=== PATIENT | female | born 1945 | race Caucasian/White ===

== ENCOUNTER 2017-12-06 17:16 | Observation (INO) | payer MEDICAID ==
[2017-12-06 17:16] VITALS: BMI 34.3
--- NOTE | 2017-12-06 17:57 | C.PDOC ---
History Of Present Illness <Pina Gomez - Last Filed: 12/06/17 19:06> <Celena Christensen - Last Filed: 12/06/17 21:35> Patient c/o CP and generalized weakness started 30 min prior to arrival. Patient has h/o DVT. (Pina Gomez) <Pina Gomez - Last Filed: 12/06/17 19:06> <Celena Christensen - Last Filed: 12/06/17 21:35> Time Seen by Provider: 12/06/17 17:51 Chief Complaint (Nursing): Chest Pain Past Medical History Reviewed: Historical Data, Nursing Documentation, Vital Signs - Medical History PMH: Deep Vein Thrombosis, HTN, Hypercholesterolemia Family History: States: Unknown Family Hx - Social History Hx Alcohol Use: No Hx Substance Use: No - Immunization History Hx Tetanus Toxoid Vaccination: Yes Hx Influenza Vaccination: Yes Hx Pneumococcal Vaccination: Yes <Pina Gomez - Last Filed: 12/06/17 19:06> Vital Signs: Last Vital Signs Temp 98.6 F 12/06/17 20:38 Pulse 73 12/06/17 20:38 Resp 18 12/06/17 20:38 BP 116/80 12/06/17 20:38 Pulse Ox 100 12/06/17 20:38 - [employer] Procedures INJECT/INFUSE NEC (09/01/13) Review Of Systems Except As Marked, All Systems Reviewed And Found Negative. <Pina Gomez - Last Filed: 12/06/17 19:06> Physical Exam - Physical Exam Appears: Non-toxic, No Acute Distress Skin: Normal Color, Warm, Dry Head: Atraumatic, Normacephalic Eye(s): bilateral: Normal Inspection Nose: Normal Throat: Normal Neck: Normal ROM, Supple Chest: Symmetrical, No Deformity Cardiovascular: Rhythm Regular Respiratory: Normal Breath Sounds Gastrointestinal/Abdominal: Normal Exam, Soft, No Tenderness Back: No CVA Tenderness, No Vertebral Tenderness Extremity: Normal ROM, No Tenderness, No Calf Tenderness, No Swelling Neurological/Psych: Oriented x3, Normal Speech, Normal Cognition <Pina Gomez - Last Filed: 12/06/17 19:06> ED Course And Treatment - Laboratory Results Result Diagrams: 12/06/17 18:13 12/06/17 18:13 ECG: Interpreted By Me ECG Rhythm: Sinus Rhythm ECG Interpretation: No Acute Changes Rate From EC O2 Sat by Pulse Oximetry: 100 <Pina Gomez - Last Filed: 12/06/17 19:06> - Laboratory Results Result Diagrams: 12/06/17 18:13 12/06/17 18:13 <Celena Christensen - Last Filed: 12/06/17 21:35> Disposition - Disposition Disposition Time: 19:00 <Pina Gomez - Last Filed: 12/06/17 19:06> Discussed With Dr.: Maik Martinez Comment: accepted th ept on his service and took over the care at 9:34 PM Doctor Will See Patient In The: ED Counseled Patient/Family Regarding: Studies Performed, Diagnosis - POA Present On Arrival: None <Celena Christensen - Last Filed: 12/06/17 21:35> - Disposition Disposition: HOSPITALIZED Condition: FAIR Forms: [facility] ([place]) - Clinical Impression Clinical Impression: Chest pain Physician Patient Turnover Patient Signed Over To: Celena Christensen Handoff Comments: labs/CTA/dispo pending <Pina Gomez - Last Filed: 12/06/17 19:06> Decision To Admit <Pina Gomez - Last Filed: 12/06/17 19:06> - Pt Status Changed To: Hospital Disposition Of: Inpatient - Admit Certification Admit to Inpatient:: After my assessment, the patient will require hospitalization for at least two midnights. This is because of the severity of symptoms shown, intensity of services needed, and/or the medical risk in this patient being treated as an outpatient. - InPatient: Physician Admission Certification: I certify that this patient requires 2 or more midnights of care for the following reason:: After my assessment, the patient will require hospitalization for at least two midnights. This is because of the severity of symptoms shown, intensity of services needed, and/or the medical risk in this patient being treated as an outpatient. - . Bed Request Type: Telemetry Admitting Physician: Maik Martinez <Celena Christensen - Last Filed: 12/06/17 21:35> - . Patient Diagnosis: Chest pain
[2017-12-06 18:17] LABS: BASO # 0.1 K/uL (0.0-0.2); EOS # 0.1 K/uL (0.0-0.7); EOS % 1.8 % (0.0-4.0); LYMPH # 2.7 K/uL (1.0-4.3); LYMPH % 48.9 % (20.0-40.0); MEAN CELL VOLUME 86.8 fL (81.0-99.0); MEAN CORPUSCULAR HEMOGLOBIN 28.9 pg (27.0-31.0); MEAN CORPUSCULAR HGB CONC 33.3 g/dL (33.0-37.0); MEAN PLATELET VOLUME 8.9 fL (7.2-11.7); MONO # 0.5 K/uL (0.0-0.8); MONO % 9.1 % (0.0-10.0); NEUT # 2.1 K/uL (1.8-7.0); NEUT % 39.2 % (50.0-75.0); NRBC % 0.1 % (0.0-2.0); RBC 4.51 Mil/uL (3.80-5.20); RED CELL DISTRIBUTION WIDTH 14.6 % (11.5-14.5); WHITE BLOOD COUNT 5.4 K/uL (4.8-10.8)
[2017-12-06 18:30] LABS: PROTHROMBIN TIME 11.7 SECONDS (9.7-12.2)
[2017-12-06 18:38] LABS: ALB/GLOB RATIO 1.2 (1.0-2.1); ALBUMIN 3.9 g/dL (3.5-5.0); ALT/SGPT 28 U/L (9-52); AST/SGOT 23 U/L (14-36); BLOOD UREA NITROGEN 9 mg/dL (7-17); GFR AFRICAN-AMERICAN > 60; GFR NON-AFRICAN AMERICAN > 60
[2017-12-06 18:50] LABS: CK-MB 0.99 ng/mL (0.0-3.38)
[2017-12-06] MEDS ORDERED: Iodixanol 320 MG/ML 100 ML BOTTLE IV ONE (19:50)
--- NOTE | 2017-12-06 21:02 | CT ---
EXAM: CT Angiography Chest With Intravenous Contrast CLINICAL HISTORY: 72 years old, female; Pain; Chest pain; Type not specified; Additional info: Chest pain, elevated ddimer, h/o dvt TECHNIQUE: Axial computed tomographic angiography images of the chest with intravenous contrast using pulmonary embolism protocol. All CT scans at this facility use one or more dose reduction techniques, viz.: automated exposure control; ma/kV adjustment per patient size (including targeted exams where dose is matched to indication; i.e. head); or iterative reconstruction technique. MIP reconstructed images were created and reviewed. Coronal and sagittal reformatted images were created and reviewed. CONTRAST: 100 mL of [id number] administered intravenously. COMPARISON: No relevant prior studies available. FINDINGS: Limitations: Motion artifact - mild. Pulmonary arteries: No definite pulmonary embolism. Aorta: Minimal atherosclerotic disease. No aneurysm. Lungs: Minimal atelectasis/scarring. No consolidation. Pleural space: No significant effusion. No pneumothorax. Heart: Mild cardiomegaly. No significant pericardial effusion. Bones/joints: Mild degenerative changes of spine. No acute fracture. Soft tissues: Unremarkable. Lymph nodes: No pathologically enlarged lymph nodes. Liver: Few low-attenuation lesions with benign imaging features. IMPRESSION: 1. No definite CT evidence of pulmonary embolism. 2. Liver lesions. No follow-up is necessary. 3. Incidental/non-acute findings are described above.
[2017-12-06] MEDS ORDERED: Absorbable Gelatin Sponge Size 12-7 ONE (22:43)
--- NOTE | 2017-12-06 23:44 | CP.PCM.HP ---
<Sully DonnellyFarhad - Last Filed: 12/07/17 02:17> History of Present Illness - History of Present Illness History of Present Illness: HPI: Patient is a 72 year old female with a past medical history of hypercholesterolemia, hypertension, and DVT, who presents to the ED with chest pain, abdominal pain, and headache. Patient states that the pain started at 4pm in the afternoon and lasted for one hour, and describes it as a sharp stabbing pain centrally located in the chest and epigastric area. The chest pain and abdominal pain were worse with respirations. Patient states this is the first time she has experienced this pain. Patient denies nausea, vomiting, fevers, leg pain/swelling, weakness, and dizziness. PMD: Dr. Tony PMHx: hypercholesterolemia, hypertension, and "DVT in left leg, lungs, and brain " (2005; took Coumadin for 7 years) SurgHx: left foot surgery 2005 FamHx: Sister- HTN, cancer (unknown type) SocHx: denies tobacco and drug use; drinks wine socially; lives alone in [place]; works in school cafeteria Allergies: NKDA; [place] Medications: Pravastatin 40mg PO daily, Indapamide 1.25mg PO daily Present on Admission - Present on Admission Any Indicators Present on Admission: Yes History of DVT/PE: Yes Review of Systems - Constitutional Constitutional: Headache. absent: Chills, Fever, Weakness - EENT Ears: absent: Dizziness - Cardiovascular Cardiovascular: Chest Pain, Dyspnea, Palpitations. absent: Lightheadedness - Respiratory Respiratory: Dyspnea, Pain on Inspiration, Pain with Coughing. absent: Cough - Gastrointestinal Gastrointestinal: Abdominal Pain (epigastric). absent: Constipation, Diarrhea, Hematemesis, Hematochezia, Nausea, Vomiting - Genitourinary Genitourinary: absent: Dysuria, Hematuria, Urinary Frequency - Neurological Neurological: absent: Dizziness, Headaches, Loss of Vision, Weakness - Endocrine Endocrine: Palpitations. absent: Fatigue Past Patient History - Past Medical History & Family History Past Medical History?: Yes - Past Social History Smoking Status: Never Smoked - CARDIAC Hx Hypercholesterolemia: Yes Hx Hypertension: Yes - INTEGUMENTARY Other/Comment: VARICOSE VEINS - MUSCULOSKELETAL/RHEUMATOLOGICAL Hx Falls: No - PSYCHIATRIC Hx Substance Use: No - SURGICAL HISTORY Hx Surgeries: Yes Hx Hysterectomy: Yes Hx Orthopedic Surgery: Yes (left foot) - ANESTHESIA Hx Anesthesia Reactions: No Meds Allergies/Adverse Reactions: Allergies Allergy/AdvReac Type Severity Reaction Status Date / Time No Known Allergies Allergy Verified 08/28/14 19:55 Physical Exam - Head Exam Head Exam: ATRAUMATIC, NORMAL INSPECTION - Eye Exam Eye Exam: EOMI, PERRL - ENT Exam ENT Exam: Mucous Membranes Moist - Respiratory Exam Respiratory Exam: Clear to Auscultation Bilateral, NORMAL BREATHING PATTERN. absent: Rales, Rhonchi, Wheezes, Respiratory Distress - Cardiovascular Exam Cardiovascular Exam: REGULAR RHYTHM, +S1, +S2 - GI/Abdominal Exam GI & Abdominal Exam: Normal Bowel Sounds, Soft. absent: Distended, Firm, Guarding, Tenderness - Extremities Exam Extremities exam: Positive for: pedal pulses present. Negative for: pedal edema , tenderness - Neurological Exam Neurological exam: Alert, Oriented x3 - Psychiatric Exam Psychiatric exam: Normal Affect, Normal Mood - Skin Skin Exam: Dry, Intact, Normal Color, Warm Results - Vital Signs Recent Vital Signs: Last Vital Signs Temp 98.2 F 12/06/17 23:03 Pulse 84 12/06/17 23:03 Resp 16 12/06/17 23:03 BP 116/75 12/06/17 23:03 Pulse Ox 98 12/06/17 23:03 - Labs Result Diagrams: 12/06/17 18:13 12/06/17 18:13 Labs: Laboratory Results - last 24 hr 12/06/17 12/06/17 12/06/17 18:13 18:13 18:13 WBC 5.4 RBC 4.51 Hgb 13.0 Hct 39.1 MCV 86.8 MCH 28.9 MCHC 33.3 RDW 14.6 H Plt Count 330 MPV 8.9 Neut % (Auto) 39.2 L Lymph % (Auto) 48.9 H [place] % (Auto) 9.1 Eos % (Auto) 1.8 Baso % (Auto) 1.0 Neut # 2.1 Lymph # 2.7 Kings # 0.5 Eos # 0.1 Baso # 0.1 PT 11.7 INR 1.0 APTT 30 D-Dimer, Quantitative 262 H Sodium 136 Potassium 3.3 L Chloride 99 Carbon Dioxide 30 Anion Gap 10 BUN 9 Creatinine 0.8 Est GFR ( Amer) > 60 Est GFR (Non-Af Amer) > 60 Random Glucose 100 Calcium 9.0 Total Bilirubin 0.4 AST 23 ALT 28 Alkaline Phosphatase 84 Total Creatine Kinase 119 CK-MB (Mass) 0.99 Troponin I < 0.0120 Total Protein 7.2 Albumin 3.9 Globulin 3.3 Albumin/Globulin Ratio 1.2 Assessment & Plan (1) Chest pain Assessment and Plan: r/o ACS, r/o PE * Troponins x2: negative * Troponin #3: f/u results * CKMB: 0.99 * EKG: f/u results * CXR: f/u results * Echo: f/u results * D-dimer 262 * CT angio: no PE; liver lesions * In ED, given ASA 325mg PO once * Continue asa 81mg PO daily Status: Acute (2) HTN (hypertension) Assessment and Plan: Continue home medication- Indapamide 1/25mg po daily Status: Acute (3) Hypercholesteremia Assessment and Plan: Continue home medication- Crestor 5mg PO HS Status: Acute (4) Hx of deep venous thrombosis Assessment and Plan: Patient states she has a history of a clot in her left leg, lungs, and brain in 2005. She took Coumadin for 7 years. She currently only takes aspirin 81mg PO daily. Status: Acute (5) Prophylactic measure Assessment and Plan: Heparin 5000sc Q8 Pepcid 20mg PO daily Heart Healthy Diet Status: Acute <Maik Martinez - Last Filed: 12/07/17 19:08> Results - Vital Signs Recent Vital Signs: Last Vital Signs Temp 97.7 F 12/07/17 15:47 Pulse 76 12/07/17 15:47 Resp 18 12/07/17 15:47 BP 128/87 12/07/17 15:47 Pulse Ox 96 12/07/17 15:47 - Labs Result Diagrams: 12/07/17 08:16 12/07/17 08:16 Labs: Laboratory Results - last 24 hr 12/07/17 12/07/17 12/07/17 00:10 08:16 08:16 WBC 4.4 L RBC 4.24 Hgb 12.6 Hct 37.1 MCV 87.6 MCH 29.6 MCHC 33.8 RDW 14.5 Plt Count 295 MPV 9.4 Neut % (Auto) 34.2 L Lymph % (Auto) 51.2 H Kings % (Auto) 10.1 H Eos % (Auto) 3.5 Baso % (Auto) 1.0 Neut # 1.5 L Lymph # 2.2 Kings # 0.4 Eos # 0.2 Baso # 0.0 Sodium 135 Potassium 3.5 L Chloride 99 Carbon Dioxide 30 Anion Gap 10 BUN 14 Creatinine 0.8 Est GFR ( Amer) > 60 Est GFR (Non-Af Amer) > 60 Random Glucose 89 Calcium 9.0 Total Bilirubin 0.4 AST 24 ALT 30 Alkaline Phosphatase 80 Total Creatine Kinase 93 CK-MB (Mass) 0.71 Troponin I < 0.0120 Total Protein 6.6 Albumin 3.5 Globulin 3.1 Albumin/Globulin Ratio 1.1 12/07/17 10:53 WBC RBC Hgb Hct MCV MCH MCHC RDW Plt Count MPV Neut % (Auto) Lymph % (Auto) Kings % (Auto) Eos % (Auto) Baso % (Auto) Neut # Lymph # Kings # Eos # Baso # Sodium Potassium Chloride Carbon Dioxide Anion Gap BUN Creatinine Est GFR ( Amer) Est GFR (Non-Af Amer) Random Glucose Calcium Total Bilirubin AST ALT Alkaline Phosphatase Total Creatine Kinase 90 CK-MB (Mass) 0.53 Troponin I < 0.0120 Total Protein Albumin Globulin Albumin/Globulin Ratio Assessment & Plan - Date & Time Date: 12/07/17 (I have seen and examined the patient. I agree with the findings and plan of care as documented by Dr. Donnelly. Patient with chest pain. Aspirin and Statin. ROMIx3 with EKG. Also with history of hypertension. Continue home meds. Also with history of DVT. Only on Aspirin at home. No longer on Coumadin. Heparin for prophylaxis. Monitor for acute changes.) Time: 19:07 Attending/Attestation - Attestation I have personally seen and examined this patient.: Yes I have fully participated in the care of the patient.: Yes I have reviewed all pertinent clinical information: Yes
[2017-12-07 00:41] LABS: CK-MB 0.71 ng/mL (0.0-3.38)
--- NOTE | 2017-12-07 07:56 | CP.PCM.PN ---
Objective - Vital Signs/Intake and Output Vital Signs (last 24 hours): Temp Pulse Resp BP Pulse Ox 97.6 F 77 20 99/65 L 97 12/07/17 00:34 12/07/17 00:34 12/07/17 00:34 12/07/17 00:34 12/07/17 00:34 Intake and Output: 12/07/17 12/07/17 06:59 18:59 Intake Total 240 Balance 240 - Medications Medications: Current Medications Aspirin (Aspirin Chewable) 81 mg PO DAILY [facility] Famotidine (Pepcid) 20 mg PO DAILY [facility] Heparin Sodium (Porcine) (Heparin) 5,000 units SC Q8 [facility] Last Admin: 12/07/17 06:03 Dose: 5,000 units Home Med (Indapamide [Lozol]) 1.25 mg PO DAILY [facility] Potassium Chloride (K-Dur 20 Meq Er Tab) 20 meq PO DAILY [facility] Rosuvastatin Calcium (Crestor) 5 mg PO HS [facility] - Labs Labs: 12/06/17 18:13 12/06/17 18:13 PT 11.7 SECONDS (9.7-12.2) 12/06/17 18:13 INR 1.0 12/06/17 18:13 APTT 30 SECONDS (21-34) 12/06/17 18:13
[2017-12-07 08:13] VITALS: O2SAT 96
[2017-12-07 08:29] LABS: EOS # 0.2 K/uL (0.0-0.7); EOS % 3.5 % (0.0-4.0); HEMOGLOBIN 12.6 g/dL (11.0-16.0); LYMPH # 2.2 K/uL (1.0-4.3); LYMPH % 51.2 % (20.0-40.0); MEAN CELL VOLUME 87.6 fL (81.0-99.0); MEAN CORPUSCULAR HEMOGLOBIN 29.6 pg (27.0-31.0); MEAN CORPUSCULAR HGB CONC 33.8 g/dL (33.0-37.0); MEAN PLATELET VOLUME 9.4 fL (7.2-11.7); MONO # 0.4 K/uL (0.0-0.8); MONO % 10.1 % (0.0-10.0); NEUT # 1.5 K/uL (1.8-7.0); NEUT % 34.2 % (50.0-75.0); NRBC % 0.1 % (0.0-2.0); RBC 4.24 Mil/uL (3.80-5.20); RED CELL DISTRIBUTION WIDTH 14.5 % (11.5-14.5); WHITE BLOOD COUNT 4.4 K/uL (4.8-10.8)
--- NOTE | 2017-12-07 08:48 | RAD ---
PROCEDURE: CHEST RADIOGRAPH, 1 VIEW HISTORY: CP COMPARISON: None available. FINDINGS: LUNGS: Clear. PLEURA: No pneumothorax or pleural fluid seen. CARDIOVASCULAR: Normal. OSSEOUS STRUCTURES: No significant abnormalities. VISUALIZED UPPER ABDOMEN: Normal. OTHER FINDINGS: None. IMPRESSION: No active disease.
[2017-12-07 09:04] LABS: ALB/GLOB RATIO 1.1 (1.0-2.1); ALBUMIN 3.5 g/dL (3.5-5.0); ALT/SGPT 30 U/L (9-52); AST/SGOT 24 U/L (14-36); BLOOD UREA NITROGEN 14 mg/dL (7-17); GFR AFRICAN-AMERICAN > 60; GFR NON-AFRICAN AMERICAN > 60
[2017-12-07] MEDS ORDERED: Potassium Chloride 20 mEq ER Tab PO SCH (10:00)
[2017-12-07 11:27] LABS: CK-MB 0.53 ng/mL (0.0-3.38)
[2017-12-07 12:32] VITALS: TEMP 97.7
[2017-12-07 15:53] VITALS: BP 128/87; PULSE 76; RESP 18
--- NOTE | 2017-12-07 16:11 | CP.PCM.DIS ---
Provider - Provider Date of Admission: 12/06/17 21:33 Attending physician: Mirta Sharp MD Time Spent in preparation of Discharge (in minutes): 40 Hospital Course - Lab Results Lab Results: Most Recent Lab Values WBC 4.4 K/uL (4.8-10.8) L 12/07/17 08:16 RBC 4.24 Mil/uL (3.80-5.20) 12/07/17 08:16 Hgb 12.6 g/dL (11.0-16.0) 12/07/17 08:16 Hct 37.1 % (34.0-47.0) 12/07/17 08:16 MCV 87.6 fL (81.0-99.0) 12/07/17 08:16 MCH 29.6 pg (27.0-31.0) 12/07/17 08:16 MCHC 33.8 g/dL (33.0-37.0) 12/07/17 08:16 RDW 14.5 % (11.5-14.5) 12/07/17 08:16 Plt Count 295 K/uL (130-400) 12/07/17 08:16 MPV 9.4 fL (7.2-11.7) 12/07/17 08:16 Neut % (Auto) 34.2 % (50.0-75.0) L 12/07/17 08:16 Lymph % (Auto) 51.2 % (20.0-40.0) H 12/07/17 08:16 [place] % (Auto) 10.1 % (0.0-10.0) H 12/07/17 08:16 Eos % (Auto) 3.5 % (0.0-4.0) 12/07/17 08:16 Baso % (Auto) 1.0 % (0.0-2.0) 12/07/17 08:16 Neut # 1.5 K/uL (1.8-7.0) L 12/07/17 08:16 Lymph # 2.2 K/uL (1.0-4.3) 12/07/17 08:16 [place] # 0.4 K/uL (0.0-0.8) 12/07/17 08:16 Eos # 0.2 K/uL (0.0-0.7) 12/07/17 08:16 Baso # 0.0 K/uL (0.0-0.2) 12/07/17 08:16 PT 11.7 SECONDS (9.7-12.2) 12/06/17 18:13 INR 1.0 12/06/17 18:13 APTT 30 SECONDS (21-34) 12/06/17 18:13 D-Dimer, Quantitative 262 ng/mlDDU (0-243) H 12/06/17 18:13 Sodium 135 mmol/L (132-148) 12/07/17 08:16 Potassium 3.5 mmol/L (3.6-5.2) L 12/07/17 08:16 Chloride 99 mmol/L (98-107) 12/07/17 08:16 Carbon Dioxide 30 mmol/L (22-30) 12/07/17 08:16 Anion Gap 10 (10-20) 12/07/17 08:16 BUN 14 mg/dL (7-17) 12/07/17 08:16 Creatinine 0.8 mg/dL (0.7-1.2) 12/07/17 08:16 Est GFR ( Amer) > 60 12/07/17 08:16 Est GFR (Non-Af Amer) > 60 12/07/17 08:16 Random Glucose 89 mg/dL (65-105) 12/07/17 08:16 Calcium 9.0 mg/dl (8.6-10.4) 12/07/17 08:16 Total Bilirubin 0.4 mg/dL (0.2-1.3) 12/07/17 08:16 AST 24 U/L (14-36) 12/07/17 08:16 ALT 30 U/L (9-52) 12/07/17 08:16 Alkaline Phosphatase 80 U/L (38-126) 12/07/17 08:16 Total Creatine Kinase 90 U/L (30-135) 12/07/17 10:53 CK-MB (Mass) 0.53 ng/mL (0.0-3.38) 12/07/17 10:53 Troponin I < 0.0120 ng/mL (0.00-0.120) 12/07/17 10:53 Total Protein 6.6 g/dL (6.3-8.3) 12/07/17 08:16 Albumin 3.5 g/dL (3.5-5.0) 12/07/17 08:16 Globulin 3.1 gm/dL (2.2-3.9) 12/07/17 08:16 Albumin/Globulin Ratio 1.1 (1.0-2.1) 12/07/17 08:16 - Hospital Course Hospital Course: HPI: Patient is a 72 year old female with a past medical history of hypercholesterolemia, hypertension, and DVT, who presents to the ED with chest pain, abdominal pain, and headache. Patient states that the pain started at 4pm in the afternoon and lasted for one hour, and describes it as a sharp stabbing pain centrally located in the chest and epigastric area. The chest pain and abdominal pain were worse with respirations. Patient states this is the first time she has experienced this pain. Patient denies nausea, vomiting, fevers, leg pain/swelling, weakness, and dizziness. PMD: Dr. 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 EKG NSL; D-dimer 262; Chest Xray No active disease. CT Angio 1. No definite CT evidence of pulmonary embolism. 2. Liver lesions. No follow-up is necessary. 3. Incidental/non-acute findings are described above. Patient was given 325mg of aspirin in the ED Patient was restarted on her home medications. Patient stable for discharge home per Dr. Sharp. Patient to continue all home medications. Patient to follow up with primary doctor, Dr. Tony in one week. - Patient will need ECHO as an out patient. Please return to the emergency room if symptoms return or worsen. This is a summary of patient's hospital course, please see chart for full details. Discharge Exam - Head Exam Head Exam: ATRAUMATIC, NORMAL INSPECTION Discharge Plan - Follow Up Plan Condition: FAIR Disposition: HOME/ ROUTINE Instructions: Chest Pain (DC), Heart Healthy Diet (DC), Cholesterol and Your Health (GEN) Additional Instructions: Patient stable for discharge home per Dr. Sharp. Patient to continue all home medications. Patient to follow up with primary doctor, Dr. Tony in one week. - Patient will need ECHO as an out patient. Please return to the emergency room if symptoms return or worsen.
--- NOTE | 2017-12-08 23:33 | CARD ---
APPROVED REPORT EKG Measurement Heart [id number] <Conclusion> Normal sinus rhythm Normal ECG
== END 2017-12-07 17:00 | disposition home or self-care (01) ==
LOC: C.ER 17:16 → C.9E 21:33 → C.6T 21:33
PROVIDERS: ADMIT Family Medicine; ATTEND Internal Medicine
DX: R07.9 Chest pain, unspecified (principal); I10 Essential (primary) hypertension; E78.00 Pure hypercholesterolemia, unspecified; R51 Headache; R10.9 Unspecified abdominal pain; Z86.718 Personal history of other venous thrombosis and embolism; Z82.49 Family history of ischemic heart disease and other diseases of the circulatory system; Z91.013 Allergy to seafood; Z79.899 Other long term (current) drug therapy; K76.9 Liver disease, unspecified; I83.90 Asymptomatic varicose veins of unspecified lower extremity; Z79.82 Long term (current) use of aspirin
CPT/HCPCS: 36415; 71045; 71275; 80053; 82550; 82553; 84484; 85025; 85378; 85610; 85730; G0378; J1644; Q9967